=== PATIENT | female | born 1975 | race Caucasian/White ===

== ENCOUNTER 2018-11-27 12:34 | Emergency (ER) | payer BC ==
[2018-11-27 12:43] VITALS: BP 132/74; PULSE 84; O2SAT 100
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
--- NOTE | 2018-11-27 14:48 | XRAY ---
Indication: Pain following injury. Comparison: None 3 nonweightbearing views of the left foot demonstrates tiny plantar heel spur and small talonavicular accessory ossicle. No other bony, articular, or soft tissue abnormalities.
== END 2018-11-27 14:05 | disposition home or self-care (01) ==
LOC: ED 12:34
DX: S90.32XA Contusion of left foot, initial encounter (principal); V86.95XA Unspecified occupant of 3- or 4- wheeled all-terrain vehicle (ATV) injured in nontraffic accident, initial encounter
CPT/HCPCS: 73630; 99283